=== PATIENT | female | born 1955 | race Caucasian/White ===

== ENCOUNTER 2018-12-21 17:12 | Emergency (ER) | payer OTHER ==
[2018-12-21 18:08] VITALS: BP 149/85
--- NOTE | 2018-12-21 18:40 | UC ---
Abdominal Pain Female HPI - HPI Summary HPI Summary: 63-year-old woman comes in with a chief complaint of left-sided abdominal pain. Pain started yesterday. It's been continuous. It waxes and wanes in intensity. At its worse it's 6 out of 10. Right now to 2 out of 10. Movement does not seem to make the pain worse. No nausea. Patient reports normal bowel movements which are slightly constipated she has IBS. No urinary symptoms. Has not seen any hematuria. No fevers or chills. Patient does have rheumatoid arthritis and is on medications therefore she is immunocompromised. Denies any history of kidney stones or diverticulitis. No rash. - History of Current Complaint Chief Complaint: UCAbdominalPain Stated Complaint: LEFT SIDED PAIN Time Seen by Provider: 12/21/18 18:11 Pain Intensity: 6 Allergies/Adverse Reactions: Allergies Allergy/AdvReac Type Severity Reaction Status Date / Time ciprofloxacin [From Cipro HC] Allergy Unknown Nausea Verified 12/21/18 17:55 codeine Allergy Unknown Nausea Verified 12/21/18 17:55 hydrocortisone Allergy Unknown Nausea Verified 12/21/18 17:55 [From Cipro HC] NSAIDS (Non-Steroidal Allergy Unknown acid relux Verified 12/21/18 17:55 Anti-Inflamma Home Medications: Home Medications Jelzantz 11 mg PO DAILY 12/21/18 [History] Meloxicam 7.5 mg PO DAILY 12/21/18 [History Confirmed 12/21/18] Ranitidine TAB (NF) [Zantac TAB (NF)] 150 mg PO BID 12/21/18 [History Confirmed 12/21/18] Sucralfate TAB* [Carafate*] 1 gm PO BID PRN 12/21/18 [History Confirmed 12/21/18 ] PMH/Surg Hx/FS Hx/Imm Hx Previously Healthy: Yes - RA Endocrine History: Dyslipidemia Cardiovascular History: Hypertension - Surgical History Surgical History: Yes Surgery Procedure, Year, and Place: c-sectx2, hysterectomy, bladder lift, nasal , left breast. EYE SURGERY - Family History Known Family History: Positive: Non-Contributory - Social History Alcohol Use: Rare Substance Use Type: None Smoking Status (MU): Never Smoked Tobacco - Immunization History Most Recent Influenza Vaccination: current Review of Systems All Other Systems Reviewed And Are Negative: Yes Constitutional: Positive: Negative Skin: Positive: Negative Eyes: Positive: Negative ENT: Positive: Negative Respiratory: Positive: Negative Cardiovascular: Positive: Negative Gastrointestinal: Positive: Other - see hpi Genitourinary: Positive: Negative Motor: Positive: Negative Neurovascular: Positive: Negative Musculoskeletal: Positive: Negative Neurological: Positive: Negative Psychological: Positive: Negative Is Patient Immunocompromised?: Yes - on becca Physical Exam Triage Information Reviewed: Yes Appearance: Well-Appearing, Well-Nourished, Pain Distress - mild Vital Signs: Initial Vital Signs Temp 97.5 F 12/21/18 18:00 Pulse 65 12/21/18 18:00 Resp 18 12/21/18 18:00 BP 149/85 12/21/18 18:00 Pulse Ox 100 12/21/18 18:00 Vital Signs Reviewed: Yes Eye Exam: Normal Eyes: Positive: Conjunctiva Clear Neck: Positive: Supple Respiratory: Positive: Lungs clear, Normal breath sounds, No respiratory distress Cardiovascular: Positive: RRR Abdomen Description: Positive: Soft, Other: - Mild tenderness to palpation left lateral abd.. Negative: CVA Tenderness (R), CVA Tenderness (L), Distended, Guarding Musculoskeletal Exam: Normal Musculoskeletal: Positive: Strength Intact, ROM Intact Neurological Exam: Normal Neurological: Positive: Alert, Muscle Tone Normal Psychological Exam: Normal Psychological: Positive: Age Appropriate Behavior Skin Exam: Normal Skin: Positive: Other - no rash. Negative: Rashes Abd Pain Female Course/Dx - Course Course Of Treatment: EXAM: CT Abdomen and Pelvis Without Contrast EXAM DATE/TIME: 12/21/2018 7:05 PM CLINICAL HISTORY: 63 years old, female; Pain; Abdominal pain; Acute; Prior surgery; Surgery date: 6+ months; Surgery type: Hysterectomy, csect x 2, bladder lift, lt breast surgery x 2; Patient HX: Lt sided abdominal pain since yesterday; Additional info: Left abd pain TECHNIQUE: Imaging protocol: Axial computed tomography images of the abdomen and pelvis without contrast. Coronal and sagittal reformatted images were created and reviewed. Radiation optimization: All CT scans at this facility use at least one of these dose optimization techniques: automated exposure control; mA and/or kV adjustment per patient size (includes targeted exams where dose is matched to clinical indication); or iterative reconstruction. COMPARISON: OT PELVIS 1+ VWS 07/02/2018 3:27 PM FINDINGS: Lower thorax: There is mild bibasilar atelectatic change or scarring. ABDOMEN: Liver: There is a subcentimeter low attenuation lesion in the right lobe of the liver that is too small to characterize. Gallbladder and bile ducts: Normal. No calcified stones. No ductal dilation. Pancreas: Normal. No ductal dilation. Spleen: Normal. No splenomegaly. Adrenals: Normal. No mass. Kidneys and ureters: Normal. No hydronephrosis. Stomach and bowel: There is sigmoid colonic diverticulosis without evidence for acute diverticulitis. Appendix: The appendix is unremarkable and seen best on axial image 57 of series 2. PELVIS: Bladder: Unremarkable as visualized. Reproductive: There are postoperative changes of hysterectomy. ABDOMEN and PELVIS: Intraperitoneal space: Normal. No free air. No significant fluid collection. Bones/joints: There are degenerative changes of the spine and there is grade 1 anterolisthesis at L4-5, likely degenerative. Soft tissues: There is a small fat filled umbilical hernia without signs of incarceration. Vasculature: There are atherosclerotic aortic and iliac and femoral artery calcifications. Lymph nodes: Normal. No enlarged lymph nodes. IMPRESSION: 1. There is sigmoid colonic diverticulosis without evidence for acute diverticulitis. 2. No other acute CT pathology. COMMENT: Consistent with the [employer]'s Incidental Findings Committee Report (J Am Tawny Radiol 2010): Unless the patient's specific circumstances suggest otherwise, any liver lesion 0.5 cm or less, any cystic kidney lesion less than 1.0 cm, and/or any adrenal lesion 1.0 cm or less not otherwise characterized in this report as possessing suspicious or indeterminate imaging features is/are highly likely to be benign and do not require follow-up imaging or biopsy. To contact [facility] with a general question: [facility] - [phone] For direct physician to physician contact: Physician Hotline - [phone] [facility] ([facility] Facility ID #[id number]) End of Report Content Attending Doctor: Luciano Smith ([id number]) [employer] Paralegal: Malcom Preciado ([id number]) Lead Massage Therapist: MOISE . (MOISE) Report Date: 12/21/2018 18:34:00 Report Status: Final Begin of Report Content Patient Name: NATASHA NAVARRO Medical Record#: [id number] Ordering Physician: Luciano Smith MD Acct.#: [id number] : 1955 Age: 63 Sex: F Location: [facility] Exam Date: 12/21/181833 ADM Status: [facility] ER Order Information: CT ABD/PEL W/O Accession Number: [id number] CPT: 28360 EXAM: CT Abdomen and Pelvis Without Contrast EXAM DATE/TIME: 12/21/2018 7:05 PM CLINICAL HISTORY: 63 years old, female; Pain; Abdominal pain; Acute; Prior surgery; Surgery date: 6+ months; Surgery type: Hysterectomy, csect x 2, bladder lift, lt breast surgery x 2; Patient HX: Lt sided abdominal pain since yesterday; Additional info: Left abd pain TECHNIQUE: Imaging protocol: Axial computed tomography images of the abdomen and pelvis without contrast. Coronal and sagittal reformatted images were created and reviewed. Radiation optimization: All CT scans at this facility use at least one of these dose optimization techniques: automated exposure control; mA and/or kV adjustment per patient size (includes targeted exams where dose is matched to clinical indication); or iterative reconstruction. COMPARISON: OT PELVIS 1+ VWS 07/02/2018 3:27 PM FINDINGS: Lower thorax: There is mild bibasilar atelectatic change or scarring. ABDOMEN: Liver: There is a subcentimeter low attenuation lesion in the right lobe of the liver that is too small to characterize. Gallbladder and bile ducts: Normal. No calcified stones. No ductal dilation. Pancreas: Normal. No ductal dilation. Spleen: Normal. No splenomegaly. Adrenals: Normal. No mass. Kidneys and ureters: Normal. No hydronephrosis. Stomach and bowel: There is sigmoid colonic diverticulosis without evidence for acute diverticulitis. Appendix: The appendix is unremarkable and seen best on axial image 57 of series 2. PELVIS: Bladder: Unremarkable as visualized. Reproductive: There are postoperative changes of hysterectomy. ABDOMEN and PELVIS: Intraperitoneal space: Normal. No free air. No significant fluid collection. Bones/joints: There are degenerative changes of the spine and there is grade 1 anterolisthesis at L4-5, likely degenerative. Soft tissues: There is a small fat filled umbilical hernia without signs of incarceration. Vasculature: There are atherosclerotic aortic and iliac and femoral artery calcifications. Lymph nodes: Normal. No enlarged lymph nodes. IMPRESSION: 1. There is sigmoid colonic diverticulosis without evidence for acute diverticulitis. 2. No other acute CT pathology. COMMENT: Consistent with the [employer]'s Incidental Findings Committee Report (J Am Tawny Radiol 2010): Unless the patient's specific circumstances suggest otherwise, any liver lesion 0.5 cm or less, any cystic kidney lesion less than 1.0 cm, and/or any adrenal lesion 1.0 cm or less not otherwise characterized in this report as possessing suspicious or indeterminate imaging features is/are highly likely to be benign and do not require follow-up imaging or biopsy. To contact [facility] with a general question: [facility] - [phone] For direct physician to physician contact: Physician Hotline - [phone] [facility] ([facility] Facility ID #[id number]) <Electronically signed by Malcom Preciado MD in OV> 12/21/[address] of her abdomen and pelvis with no contrast. Also jose blood work for CBC CMP and lipase. Urine had a trace of blood and otherwise was negative. Patient preferred to not wait for the CT results. She was discharged from the clinic prior to results being available. She did let me know that I can call her with the results. We also discussed that if her condition did not improve or she worsens she needs to go to the emergency department. She is aware that she is immunocompromised due to her rheumatoid arthritis medication. The CT report came back and I discussed the CT report with the patient over the phone. At this time the plan is to follow-up with her primary care doctor get reevaluated sooner if worse or any questions concerns. - Differential Dx/Diagnosis Provider Diagnosis: Left sided abdominal pain Discharge - Sign-Out/Discharge Documenting (check all that apply): Patient Departure All imaging exams completed and their final reports reviewed: Yes - Discharge Plan Condition: Stable Disposition: HOME Patient Education Materials: Acute Abdominal Pain (ED) Referrals: Theodore Douglas DO [Primary Care Provider] - Additional Instructions: FOLLOW UP WITH YOUR DOCTOR. GO TO THE EMERGENCY DEPARTMENT FOR WORSENING OF YOUR CONDITION; PAIN, FEVER, YOU FEEL ILL OR QUESTIONS OR CONCERNS. - Billing Disposition and Condition Condition: STABLE Disposition: Home
[2018-12-22 10:29] LABS: ABS Basophils 0 10^3/ul (0-0.2); ABS Eosinophils 0.1 10^3/ul (0-0.6); ABS Lymphocytes 3.1 10^3/ul (1.0-4.8); ABS Monocytes 0.5 10^3/ul (0-0.8); ABS Neutrophils 6.1 10^3/ul (1.5-7.7); ABS Nucleated RBC 0 10^3/ul; Eosinophil % 0.7 %; Hematocrit 39 % (33-41); Lymphocyte % 31.7 %; Mean Corpuscular HGB Conc 33 g/dL (31-36); Mean Corpuscular Hemoglobin 30 pg (27-31); Mean Corpuscular Volume 89 fL (80-97); Mean Platelet Volume 8.7 fL (7.4-10.4); Nucleated Red Blood Cells % 0.2; Platelet Count 294 10^3/uL (150-450); Red Blood Count 4.39 10^6 /uL (3.70-4.87); Red Cell Distribution Width 14 % (10.5-15); White Blood Count 9.9 10^3/uL (3.5-10.8)
[2018-12-22 10:46] LABS: Albumin 4.3 g/dL (3.2-5.2); Albumin/Globulin Ratio 1.5 (1-3); BUN/Creatinine Ratio 23.9 (8-20); Calcium 9.7 mg/dL (8.6-10.3); EGFR African American 100.9 (>60); EGFR Non-African American 83.4 (>60); Globulin 2.8 g/dL (2-4); Potassium 4.1 mmol/L (3.5-5.0); Total Bilirubin 0.3 mg/dL (0.2-1.0); Total Protein 7.1 g/dL (6.4-8.9)
--- NOTE | 2018-12-23 07:09 | UC ---
- Progress Note Progress Note: Lipase elevated If worse go to ER If better see PCP early this week Course/Dx - Diagnoses Provider Diagnoses: Left sided abdominal pain Discharge - Sign-Out/Discharge Documenting (check all that apply): Post-Discharge Follow Up All imaging exams completed and their final reports reviewed: Yes - Discharge Plan Condition: Stable Disposition: HOME Patient Education Materials: Acute Abdominal Pain (ED) Referrals: Theodore Douglas DO [Primary Care Provider] - Additional Instructions: FOLLOW UP WITH YOUR DOCTOR. GO TO THE EMERGENCY DEPARTMENT FOR WORSENING OF YOUR CONDITION; PAIN, FEVER, YOU FEEL ILL OR QUESTIONS OR CONCERNS. - Billing Disposition and Condition Condition: STABLE Disposition: Home
== END 2018-12-21 20:18 | disposition home or self-care (01) ==
LOC: UCCORT 17:12
DX: R10.9 Unspecified abdominal pain (principal); K57.90 Diverticulosis of intestine, part unspecified, without perforation or abscess without bleeding
CPT/HCPCS: 36415; 74176; 80053; 81003; 83690; 85025; 99211; G0463